=== PATIENT | male | born 1955 | race Caucasian/White ===

== ENCOUNTER 2021-02-05 18:42 | Emergency (ER) | payer BC, MEDICARE ==
--- NOTE | 2021-02-05 19:31 | EDM.PDOC ---
ED HPI GENERAL MEDICAL PROBLEM - General Chief Complaint: Respiratory Problem Stated Complaint: SHORTNESS OF BREATH, COUGH Time Seen by Provider: 02/05/21 19:08 - History of Present Illness INITIAL COMMENTS - FREE TEXT/NARRATIVE: HISTORY AND PHYSICAL: History of present illness: This is a 65-year-old gentleman with a history significant for hypertension, back surgery, negative for diabetes/liver/lung/kidney/CAD/CVA/cancer in the past who presents ER today secondary to increasing shortness of breath after being diagnosed at home with coronavirus. Patient reports that his symptoms started approximately 12 days ago on January 24. He reports that he was diagnosed with a self test last week and was positive for Covid. Patient reports that his symptoms were cough, congestion, tactile fevers and night sweats with decreased appetite. Patient reports no vomiting or diarrhea. Patient has any dysuria, frequency, urgency. Patient denies any chest pain, abdominal pain, flank pain weakness to his upper or lower extremities, melena, bright red blood per rectum, lower extremity edema, pain rating down his jaws arm or back. Patient reports that he came to the ED today on the urging of his secondary to her concern with his breathing. Patient reports while he sitting here in the hospital bed his breathing feels fine however when he ambulates he does get increased shortness of breath. Review of systems: As per history of present illness and below otherwise all systems reviewed and negative. Past medical history: As per history of present illness and as reviewed below otherwise noncontributory. Surgical history: As per history of present illness and as reviewed below otherwise noncontributory. Social history: No reported history of drug abuse. Family history: As per history of present illness and as reviewed below otherwise noncontributory. Physical exam: This patient was seen and evaluated during the 2019 SARS-CoV-2 novel coronavirus pandemic period. Community viral transmission is ongoing at time of this encounter and the emergency department is operating under pandemic response procedures. Constitutional: Patient is oriented to person, place, and time. Appears well- developed and well-nourished. No distress. HEENT: Moist mucous membranes Head: Normocephalic and atraumatic Eyes: Right eye exhibits no discharge. Left eye exhibits no discharge. No scleral icterus Neck: Normal range of motion. No tracheal deviation present. Cardiovascular: Normal rate and regular rhythm. Pulmonary: Effort normal, no respiratory distress. No wheezing rales or rhonchi. Normal respiratory rate. Able to speak in full sentences without any difficulty or discomfort. Abdominal: No distention Musculoskeletal: Normal range of motion no clubbing cyanosis or edema Neurologic: Alert and oriented to person, place and time. Skin: [place], warm and dry. Psychiatric: Normal mood and affect. Behavior is normal. Judgment and thought content normal. Nursing note and vital signs have been reviewed Diagnostics: CBC, CMP, troponin, EKG, chest x-ray Chest x-ray with increased additional markings bilaterally and multi lobar consistent with Covid pneumonia Therapeutics: Potassium 40 mEq p.o. Assessment and plan: This is a 65-year-old gentleman with a history significant for hypertension who presents ER today secondary to increased shortness of breath after being diagnosed with coronavirus. Patient's symptoms started approximately 12 days ago so he will not be a candidate for Regeneron therapy. Patient has had tactile fevers at home but no documented temperatures. Patient reports has been able to tolerate p.o. solids and liquids relatively well. In the ER, patient will have a CBC, CMP, troponin, EKG and chest x-ray. Patient's pulse ox in the ER ranges between 92% and 95% on room air. 8:30 PM: Patient has been ambulating in the ED visiting his without any shortness of breath. Patient's pulse ox has remained at 93% on room air. Patient's labs are unremarkable except for slight hypokalemia which she has been treated for in the ED. Patient has been discharged home with precautions to get plenty of rest. Patient has a pulse oximeter at home that he can follow and has been instructed to return to the ED if he has any increased shortness of breath or low oxygen levels. Reassessment at the time of disposition demonstrates that the patient is in no acute distress. The patient has remained stable throughout the entire ED visit and is without objective evidence for acute process requiring urgent intervention or hospitalization. The patient is stable for discharge, counseling is provided as documented above, discussed symptomatic treatment and specific conditions for return. I have spoken with the patient/caregiver and discussed todays findings, in addition to providing specific details for the plan of care. Questions are answered and there is agreement with the plan. Definitive disposition and diagnosis as appropriate pending reevaluation and review of above. - Related Data Allergies Allergy/AdvReac Type Severity Reaction Status Date / Time No Known Allergies Allergy Verified 02/05/21 19:18 Home Meds: Home Meds Chlorthalidone 1 tab PO DAILY 02/05/21 [History] Losartan [Cozaar] 1 tab PO DAILY 02/05/21 [History] amLODIPine Besylate [Amlodipine Besylate] 1 tab PO DAILY 02/05/21 [History] ED ROS GENERAL - Review of Systems Review Of Systems: See Below ED EXAM, GENERAL - Physical Exam Exam: See Below #1 Interpretation EKG Interpretation Comments: February 05, 2021 7:33 PM EKG: As interpreted by ER physician: Megan: Nonspecific ST-T wave abnormalities Normal axis No evidence of ST elevation TN Normal sinus rhythm heart rate of 60 Course - Vital Signs Last Recorded V/S: Last Vital Signs Temp 97.4 F 02/05/21 19:24 Pulse 58 L 02/05/21 19:54 Resp 15 02/05/21 19:54 BP 126/66 02/05/21 19:54 Pulse Ox 93 L 02/05/21 19:54 - Orders/Labs/Meds Orders: Active Orders 24 hr Category Date Time Status CORONAVIRUS COVID-19 SIMI [MOLEC] Stat Lab 02/05/21 19:55 Ordered Labs: Laboratory Tests 02/05/21 02/05/21 Range/Units 19:35 19:35 WBC 9.15 (4.0-11.0) K/uL RBC 4.57 (4.50-5.90) M/uL Hgb 14.0 (13.0-17.0) g/dL Hct 39.8 (38.0-50.0) % MCV 87.1 (80.0-98.0) fL MCH 30.6 (27.0-32.0) pg MCHC 35.2 (31.0-37.0) g/dL RDW Std Deviation 44.0 (28.0-62.0) fl RDW Coeff of Romina 14 (11.0-15.0) % Plt Count 378 (150-400) K/uL MPV 10.40 (7.40-12.00) fL Neut % (Auto) 70.3 (48.0-80.0) % Lymph % (Auto) 14.1 L (16.0-40.0) % [place]ry % (Auto) 13.0 (0.0-15.0) % Eos % (Auto) 2.3 (0.0-7.0) % Baso % (Auto) 0.3 (0.0-1.5) % Neut # (Auto) 6.4 H (1.4-5.7) K/uL Lymph # (Auto) 1.3 (0.6-2.4) K/uL Surry # (Auto) 1.2 H (0.0-0.8) K/uL Eos # (Auto) 0.2 (0.0-0.7) K/uL Baso # (Auto) 0.0 (0.0-0.1) K/uL Nucleated RBC % 0.0 /100WBC Nucleated RBCs # 0 K/uL Sodium 142 (136-148) mmol/L Potassium 3.1 L (3.5-5.1) mmol/L Chloride 101 (98-107) mmol/L Carbon Dioxide 34.8 H (21.0-32.0) mmol/L BUN 21 H (7.0-18.0) mg/dL Creatinine 1.0 (0.8-1.3) mg/dL Est Cr Clr Drug Dosing 76.35 mL/min Estimated GFR (MDRD) > 60.0 ml/min Glucose 101 (74-106) mg/dL Calcium 8.3 L (8.5-10.1) mg/dL Total Bilirubin 1.6 H (0.2-1.0) mg/dL AST 36 (15-37) IU/L ALT 54 (14-63) IU/L Alkaline Phosphatase 43 L (46-116) U/L Troponin I < 0.050 (0.000-0.056) ng/mL Total Protein 6.9 (6.4-8.2) g/dL Albumin 2.6 L (3.4-5.0) g/dL Globulin 4.3 H (2.6-4.0) g/dL Albumin/Globulin Ratio 0.6 L (0.9-1.6) Meds: Medications Discontinued Medications Generic Name Dose Route Start Last Admin Trade Name Freq PRN Reason Stop Dose Admin Potassium Chloride 40 meq 02/05/21 20:27 Potassium Chloride 10% 20 Meq/15 Ml Soln 30 Ml Ud Cup PO 02/05/21 20:28 ONETIME ONE Departure - Departure Time of Disposition: 20:35 Disposition: Home, Self-Care 01 Condition: Good Clinical Impression: Pneumonia due to COVID-19 virus - Discharge Information Instructions: Shortness of Breath, Adult, [id number], Symptoms of COVID-19 - [facility] (07/02/2020), What You Should Know About COVID-19 to Protect Yourself and Others - [facility], 10 Things You Can Do to Manage Your COVID-19 Symptoms at Home - [facility] (11/23/2020) Referrals: Chance Lucas MD [Primary Care Provider] - Forms: ED Department Discharge Additional Instructions: You have been seen and evaluated in ER today secondary to increased shortness of breath while positive for coronavirus. At this time, your oxygen level has hovered between 93 to 95% which is in acceptable range with coronavirus. There is no current treatment at this time. You are outside the time limits to receive Regeneron therapy. Please make an appointment to speak to your doctor by phone this week for further instructions or concerns. 1. Your COVID-19 screening is positive. That means you do have the coronavirus and you are considered contagious. Your vital signs and oxygen saturation are well enough that you were able to monitor your symptoms at home. Continue to monitor for trouble breathing, new confusion or inability to arouse, bluish lips or face or any of the other symptoms we discussed -if this occurs please return to the emergency room. 2. Please self quarantine over the next 10 days. Inform any persons that you have been in contact with since you started becoming symptomatic that you have t ested positive; they should be made aware and take the appropriate steps as needed. 3. You can take NyQuil during the evening to help get a restful night sleep. May alternate Tylenol and ibuprofen as needed for pain and fever management. 4. The [facility] department will be calling you and following up with you. The [place] COVID 19 Hotline phone number , They are open Thursday - Thursday 7am - 7pm. Follow up with your primary care provider for re-evaluation and re-testing after the 10 day quarantine and discuss when you should be seen. The following information is given to patients seen in the emergency department who are being discharged to home. This information is to outline your options for follow-up care. We provide all patients seen in our emergency department with a follow-up referral. The need for follow-up, as well as the timing and circumstances, are variable depending upon the specifics of your emergency department visit. If you don't have a primary care physician on staff, we will provide you with a referral. We always advise you to contact your personal physician following an emergency department visit to inform them of the circumstance of the visit and for follow-up with them and/or the need for any referrals to a consulting specialist. The emergency department will also refer you to a specialist when appropriate. This referral assures that you have the opportunity for follow-up care with a specialist. All of these measure are taken in an effort to provide you with optimal care, which includes your follow-up. Under all circumstances we always encourage you to contact your private physician who remains a resource for coordinating your care. When calling for follow-up care, please make the office aware that this follow-up is from your recent emergency room visit. If for any reason you are refused follow-up, please contact the Emergency Department at and asked to speak to the emergency department charge nurse. [facility] [address] [place] [id number] [facility] [address] [place] [id number] Sepsis Event Note (ED) - Focused Exam Vital Signs: Vital Signs Temp Pulse Resp BP Pulse Ox 02/05/21 19:54 58 L 15 126/66 93 L 02/05/21 19:24 97.4 F 62 15 139/70 93 L
[2021-02-05 20:03] LABS: BLOOD UREA NITROGEN,BUN 21 mg/dL (7.0-18.0); CARBON DIOXIDE,CO2 34.8 mmol/L (21.0-32.0); CHLORIDE,CL 101 mmol/L (98-107); GLUCOSE RANDOM 101 mg/dL (74-106); POTASSIUM,K 3.1 mmol/L (3.5-5.1); SODIUM,NA 142 mmol/L (136-148)
--- NOTE | 2021-02-05 20:26 | CR ---
INDICATION: Shortness of breath and cough. COMPARISON: 14 August 2012. TECHNIQUE: One view. FINDINGS: Patchy and strandy airspace opacities at both bases likely atelectasis however multifocal pneumonia not excluded. Chronic increased from comparison elevation night hemidiaphragm. Pulmonary vascularity appears normal. Heart size within normal limits for AP projection. No definite pneumothorax or pleural effusion. No bone finding of significance. Dictated by Rick Dick MD @ 02/05/2021 8:24:29 PM (Electronically Signed)
[2021-02-05] MEDS ORDERED: Potassium Chloride 10% 20 MEQ/15 ML Soln 30 ML UD Cup PO ONE (20:27)
== END 2021-02-05 20:55 | disposition home or self-care (01) ==
LOC: MW.ED 18:42
DX: U07.1 COVID-19 (principal); J12.89 Other viral pneumonia; I10 Essential (primary) hypertension; Z79.899 Other long term (current) drug therapy
CPT/HCPCS: 36415; 71045; 80053; 84484; 85025; 93005; 99285; A9270; U0002

== ENCOUNTER 2023-04-01 08:03 | Emergency (ER) | payer MEDICARE | END 2023-04-01 09:07 | disposition home or self-care (01) | LOC: MW.ED 08:03 | DX: R04.0 Epistaxis (principal); I10 Essential (primary) hypertension; E78.00 Pure hypercholesterolemia, unspecified; Z79.899 Other long term (current) drug therapy | CPT/HCPCS: 99283 ==

== ENCOUNTER 2023-09-13 13:29 | Emergency (ER) | payer MEDICARE, OTHER ==
[2023-09-13 14:29] LABS: BASOPHILS ABSOLUTE AUTO 0.05 K/uL (0.00-0.20); BASOPHILS PERCENT AUTO 0.5 % (0.0-1.0); EOSINOPHILS ABSOLUTE AUTO 0.03 K/uL (0.00-0.45); EOSINOPHILS PERCENT AUTO 0.3 % (0.0-6.0); HEMATOCRIT 40.7 % (42.0-52.0); HEMOGLOBIN 13.7 g/dL (14.0-18.0); IMMATURE GRAN ABSOLUTE AUTO 0.02 K/uL (0.00-0.05); IMMATURE GRAN PERCENT AUTO 0.2 % (0.0-0.4); LYMPHOCYTES ABSOLUTE AUTO 0.85 K/uL (1.00-4.80); LYMPHOCYTES PERCENT AUTO 9.1 % (24.0-44.0); MEAN CORPUSCULAR HEMOGLOBIN 29.1 pg (28.0-32.0); MEAN CORPUSCULAR HGB CONC 33.7 g/dL (32.0-36.0); MEAN CORPUSCULAR VOLUME 86.4 fL (83.0-99.0); MEAN PLATELET VOLUME 9.7 fL (9.4-12.4); MONOCYTES PERCENT AUTO 4.3 % (0.0-8.0); NEUTROPHILS ABSOLUTE AUTO 8.01 K/uL (1.80-7.70); NEUTROPHILS PERCENT AUTO 85.6 % (41.0-71.0); PLATELET COUNT,PLT 298 K/uL (150-400); RED BLOOD CELL COUNT 4.71 M/uL (4.52-5.90); WHITE BLOOD CELL COUNT,WBC 9.36 K/uL (3.9-11.3)
[2023-09-13] MEDS: Ketorolac 30 MG/ML SDV IVPUSH ONE (14:36)
[2023-09-13 14:49] LABS: A/G RATIO 0.9 (0.9-1.6); ALBUMIN 3.4 g/dL (3.4-5.0); BILIRUBIN TOTAL 1.7 mg/dL (0.2-1.0); CALCIUM 8.8 mg/dL (8.5-10.1); CARBON DIOXIDE,CO2 23.6 mmol/L (21.0-32.0); CREATININE 0.9 mg/dL (0.8-1.3); EST CRCL DRUG DOSING (CG) 81.34 mL/min; POTASSIUM,K 3.3 mmol/L (3.5-5.1)
[2023-09-13] MEDS: Iopamidol 755 MG/ML 500 ML Multipack Bottle IVPUSH STA (15:23)
== END 2023-09-13 17:40 | disposition home or self-care (01) ==
LOC: MW.ED 13:29
DX: K42.0 Umbilical hernia with obstruction, without gangrene (principal); K56.609 Unspecified intestinal obstruction, unspecified as to partial versus complete obstruction; I10 Essential (primary) hypertension; Z88.0 Allergy status to penicillin; Z79.899 Other long term (current) drug therapy
CPT/HCPCS: 36415; 74177; 80053; 85025; 96374; 99284; J1885; Q9967

== ENCOUNTER 2023-09-18 08:07 | Day surgery (SDC) | payer MEDICARE ==
[~2023-09-18 08:07] MED LIST: Acetaminophen 1,000 MG in Premix Bag 1 BAG IV SCH; Albuterol 0.083% 2.5 MG/3 ML Neb Soln NEB PRN; HYDROmorphone 1 MG/ML Syringe IVPUSH PRN; Metoclopramide 10 MG/2 ML SDV IVPUSH PRN; Morphine 2 MG/ML SYRINGE IVPUSH PRN; Naloxone 0.4 MG/ML SDV IVPUSH PRN; Ondansetron 4 MG/2 ML SDV IVPUSH PRN; droPERidol 5 MG/2 ML SDV IVPUSH PRN; fentaNYL 50 MCG/ML SDV IVPUSH PRN
[2023-09-18] MEDS ORDERED: Propofol 200 MG/20 ML SDV ONE (08:19)
[2023-09-18] MEDS ORDERED: fentaNYL 100 MCG/2 ML SDV ONE ×2 (08:19→10:06)
[2023-09-18] MEDS ORDERED: dexmedeTOMIDine HCl 200 MCG/2 ML SDV ONE (08:19)
[2023-09-18] MEDS ORDERED: Water For Injection, Sterile 20 ML ONE (08:19)
[2023-09-18] MEDS ORDERED: Bupivacaine 0.5% 30 ML SDV ONE (08:28)
[2023-09-18] MEDS ORDERED: Bupivacaine 0.25% 10 ML SDV ONE (08:44)
[2023-09-18] MEDS: Pregabalin 75 MG Cap PO SCH (08:45)
[2023-09-18] MEDS ORDERED: Bupivacaine 0.5%/EPINEPHrine 1:200,000 30 ML SDV ONE (08:45)
[2023-09-18] MEDS: Lactated Ringers 1,000 ML IV SCH (08:50)
[2023-09-18] MEDS ORDERED: Ondansetron 4 MG/2 ML SDV ONE (09:30)
[2023-09-18] MEDS ORDERED: Dexamethasone 4 MG/ML 5 ML MDV ONE (09:30)
[2023-09-18] MEDS ORDERED: ceFAZolin 2 GM Vial ONE (09:33)
[2023-09-18] MEDS ORDERED: Rocuronium Bromide 50 MG/5 ML Syringe ONE (09:58)
[2023-09-18] MEDS ORDERED: Ketorolac 30 MG/ML SDV ONE (10:23)
[2023-09-18] MEDS ORDERED: Sugammadex Sodium 200 MG/2 ML VIAL IV ONE (10:23)
[2023-09-18] MEDS ORDERED: ceFAZolin 2 GM in Sodium Chloride 0.9% 50 ML IV ONE (14:12)
== END 2023-09-18 13:30 | disposition home or self-care (01) ==
LOC: MW.SDS 08:07
PROVIDERS: ATTEND Surgery
DX: K42.0 Umbilical hernia with obstruction, without gangrene (principal); I10 Essential (primary) hypertension; E78.00 Pure hypercholesterolemia, unspecified; Z87.891 Personal history of nicotine dependence; Z79.899 Other long term (current) drug therapy; Z80.0 Family history of malignant neoplasm of digestive organs
CPT/HCPCS: 49592; 64488; A9270; J0665; J0690; J1100; J1885; J2405; J2704; J3010; J3490; J7120